=== PATIENT | male | born 1990 | race Caucasian/White ===

== ENCOUNTER 2017-11-04 08:17 | Day surgery (SDC) | payer OTHER ==
[2017-11-04] MEDS ORDERED: Morphine 2 MG/ML Syringe IVPUSH ONE ×2 (08:25→09:10)
[2017-11-04] MEDS ORDERED: Sodium Chloride 0.9% 10 ML Syringe FLUSH PRN ×2 (08:25→13:11)
[2017-11-04] MEDS ORDERED: Ondansetron 4 MG/2 ML SDV IVPUSH ONE (08:25)
[2017-11-04] MEDS ORDERED: Sodium Chloride 0.9% 2.5 ML Syringe FLUSH PRN ×2 (08:25→13:11)
[2017-11-04] MEDS ORDERED: Sodium Chloride 0.9% 1,000 ML IV ONE ×2 (08:25→10:58)
--- NOTE | 2017-11-04 08:41 | EDM.PDOC ---
ED HPI GENERAL MEDICAL PROBLEM - General Chief Complaint: Abdominal Pain Stated Complaint: ABD PAIN Time Seen by Provider: 11/04/17 08:18 Source of Information: Reports: Patient History Limitations: Reports: No Limitations - History of Present Illness INITIAL COMMENTS - FREE TEXT/NARRATIVE: History of present illness: []Patient started having right upper quadrant pain 2 hours ago. He states he has been nauseated with small amount of vomiting no diarrhea, fevers, sweats or chills. Review of systems: As per history of present illness and below otherwise all systems reviewed and negative. Past medical history: As per history of present illness and as reviewed below otherwise noncontributory. Surgical history: As per history of present illness and as reviewed below otherwise noncontributory. Social history: No reported history of drug or alcohol abuse. Family history: As per history of present illness and as reviewed below otherwise noncontributory. Physical exam: General: Well developed, well nourished in NAD HEENT: Atraumatic, normocephalic, pupils reactive, negative for conjunctival pallor or scleral icterus, mucous membranes moist, throat clear, neck supple, nontender, trachea midline. Lungs: Clear to auscultation, breath sounds equal bilaterally, chest nontender. Heart: S1S2, regular, negative for clicks, rubs, or JVD. Abdomen: Soft, nondistended, right upper quadrant tenderness without rebound or guarding, mild right lower quadrant tenderness. Negative for masses or hepatosplenomegaly. Negative for costovertebral tenderness. Pelvis: Stable nontender. Genitourinary: Deferred. Rectal: Deferred. Extremities: Atraumatic, negative for cords or calf pain. Neurovascular unremarkable. Neuro: Awake, alert, oriented. Cranial nerves II through XII unremarkable. Cerebellum unremarkable. Motor and sensory unremarkable throughout. Exam nonfocal. Skin:warm and dry Diagnostics: CBC, chemistry, lipase, UA ultrasound right upper quadrant, CT abdomen pelvis Therapeutics: IV fluids, morphine, Zofran ED Course: Patient's labs were normal however abdominal exam continued to show marked right upper quadrant tenderness therefore ultrasound was done negative and followed by CT which showed acute appendicitis Impression: Acute appendicitis Prescriptions: Plan: Dr. Espinoza consulted and is taking patient to surgery Definitive disposition and diagnosis as appropriate pending reevaluation and review of above. Right Abdominal Pain Score (Numeric/FACES): 10 - Related Data Allergies Allergy/AdvReac Type Severity Reaction Status Date / Time No Known Allergies Allergy Verified 11/04/17 08:21 Home Meds: Home Meds . [No Known Home Meds] 11/04/17 [History] Past Medical History - Infectious Disease History Infectious Disease History: Reports: Chicken Pox - Past Surgical History HEENT Surgical History: Reports: Adenoidectomy, Naso-Sinus Surgery Social & Family History - Family History Family Medical History: Noncontributory - Tobacco Use Smoking Status *Q: Former Smoker Used Tobacco, but Quit: Yes Month/Year Tobacco Last Used: 05/2017 - Recreational Drug Use Recreational Drug Use: No ED ROS GENERAL - Review of Systems Review Of Systems: ROS reveals no pertinent complaints other than HPI. ED EXAM, GI/ABD - Physical Exam Exam: See Below (See history of present illness) Course - Vital Signs Last Recorded V/S: Last Vital Signs Temp 96.5 F 11/04/17 08:18 Pulse 86 11/04/17 08:18 Resp 20 11/04/17 13:49 BP 138/82 11/04/17 08:18 Pulse Ox 99 11/04/17 13:49 - Orders/Labs/Meds Orders: Active Orders 24 hr Category Date Time Status Patient Status [ADT] Routine ADT 11/04/17 13:11 Active Bradycardia-Neuroaxis [employer] [RC] ROUTINE Care 11/04/17 13:25 Active Hypertension-Neuroaxis [employer] [RC] ROUTINE Care 11/04/17 13:25 Active Hypotension-Neuroaxis [employer] [RC] ROUTINE Care 11/04/17 13:25 Active Oxygen Therapy [RC] ASDIRECTED Care 11/04/17 13:26 Active Verify Patient Consent Obtain [RC] ASDIRECTED Care 11/04/17 13:11 Active Vital Signs [RC] PER UNIT ROUTINE Care 11/04/17 13:25 Active Nothing Per Oral Diet [DIET] Diet 11/04/17 Lunch Active Lactated Ringers [Ringers, Lactated] 1,000 ml Med 11/04/17 13:15 Active IV ASDIRECTED Sodium Chloride 0.9% [Saline Flush] Med 11/04/17 08:25 Active 10 ml FLUSH ASDIRECTED PRN Sodium Chloride 0.9% [Saline Flush] Med 11/04/17 13:11 Active 10 ml FLUSH ASDIRECTED PRN Sodium Chloride 0.9% [Saline Flush] Med 11/04/17 08:25 Active 2.5 ml FLUSH ASDIRECTED PRN Sodium Chloride 0.9% [Saline Flush] Med 11/04/17 13:11 Active 2.5 ml FLUSH ASDIRECTED PRN fentaNYL [Sublimaze] Med 11/04/17 13:25 Ordered 50 - 100 mcg IVPUSH Q5M PRN Peripheral IV Insertion Adult [OM.PC] Routine Oth 11/04/17 13:11 Ordered Saline Lock Insert [OM.PC] Stat Oth 11/04/17 08:25 Ordered Sequential Compression Device [OM.PC] Routine Oth 11/04/17 13:11 Ordered Resuscitation Status Routine Resus Stat 11/04/17 13:11 Ordered Medication Orders Fentanyl (Sublimaze) 50 - 100 mcg IVPUSH Q5M PRN PRN Reason: Pain Stop: 11/04/17 16:00 Lactated Ringer's (Ringers, Lactated) 1,000 mls @ 125 mls/hr IV ASDIRECTED NIRALI Sodium Chloride (Saline Flush) 10 ml FLUSH ASDIRECTED PRN PRN Reason: Keep Vein Open Sodium Chloride (Saline Flush) 2.5 ml FLUSH ASDIRECTED PRN PRN Reason: Keep Vein Open Sodium Chloride (Saline Flush) 10 ml FLUSH ASDIRECTED PRN PRN Reason: Keep Vein Open Sodium Chloride (Saline Flush) 2.5 ml FLUSH ASDIRECTED PRN PRN Reason: Keep Vein Open Labs: Laboratory Tests 11/04/17 11/04/17 11/04/17 Range/Units 08:32 08:32 10:47 WBC 9.29 (4.0-11.0) K/uL RBC 5.21 (4.50-5.90) M/uL Hgb 16.0 (13.0-17.0) g/dL Hct 45.2 (38.0-50.0) % MCV 86.8 (80.0-98.0) fL MCH 30.7 (27.0-32.0) pg MCHC 35.4 (31.0-37.0) g/dL RDW Std Deviation 40.5 (28.0-62.0) fl RDW Coeff of Horace 13 (11.0-15.0) % Plt Count 256 (150-400) K/uL MPV 9.80 (7.40-12.00) fL Neut % (Auto) 61.1 (48.0-80.0) % Lymph % (Auto) 29.5 (16.0-40.0) % [place] % (Auto) 6.9 (0.0-15.0) % Eos % (Auto) 1.9 (0.0-7.0) % Baso % (Auto) 0.6 (0.0-1.5) % Neut # (Auto) 5.7 (1.4-5.7) K/uL Lymph # (Auto) 2.7 H (0.6-2.4) K/uL [place] # (Auto) 0.6 (0.0-0.8) K/uL Eos # (Auto) 0.2 (0.0-0.7) K/uL Baso # (Auto) 0.1 (0.0-0.1) K/uL Nucleated RBC % 0.0 /100WBC Nucleated RBCs # 0 K/uL Sodium 140 (136-148) mmol/L Potassium 4.2 (3.5-5.1) mmol/L Chloride 105 (98-107) mmol/L Carbon Dioxide 27.2 (21.0-32.0) mmol/L BUN 15 (7.0-18.0) mg/dL Creatinine 1.0 (0.8-1.3) mg/dL Est Cr Clr Drug Dosing 101.90 mL/min Estimated GFR (MDRD) > 60.0 ml/min Glucose 127 H (74-106) mg/dL Calcium 9.5 (8.5-10.1) mg/dL Total Bilirubin 0.3 (0.2-1.0) mg/dL AST 18 (15-37) IU/L ALT 29 (14-63) IU/L Alkaline Phosphatase 122 H (46-116) U/L Total Protein 8.0 (6.4-8.2) g/dL Albumin 4.2 (3.4-5.0) g/dL Globulin 3.8 H (2.0-3.5) g/dL Albumin/Globulin Ratio 1.1 L (1.3-2.8) Lipase 79 (73-393) U/L Urine Color YELLOW Urine Appearance CLEAR Urine pH 5.5 (5.0-8.0) Ur Specific [place] >= 1.030 (1.001-1.035) Urine Protein NEGATIVE (NEGATIVE) mg/dL Urine Glucose (UA) NEGATIVE (NEGATIVE) mg/dL Urine Ketones NEGATIVE (NEGATIVE) mg/dL Urine Occult Blood NEGATIVE (NEGATIVE) Urine Nitrite NEGATIVE (NEGATIVE) Urine Bilirubin NEGATIVE (NEGATIVE) Urine Urobilinogen 0.2 (<2.0) EU/dL Ur Leukocyte Esterase NEGATIVE (NEGATIVE) Urine RBC 0-1 (0-2/HPF) Urine WBC NONE SEEN (0-5/HPF) Ur Epithelial Cells RARE (NONE-FEW) Amorphous Sediment RARE (NEGATIVE) Urine Bacteria RARE (NEGATIVE) Meds: Medications Generic Name Dose Route Start Last Admin Trade Name Frenita PRN Reason Stop Dose Admin Fentanyl 50 - 100 mcg 11/04/17 13:25 Sublimaze IVPUSH 11/04/17 16:00 Q5M PRN Pain Lactated Ringer's 1,000 mls @ 125 mls/hr 11/04/17 13:15 Ringers, Lactated IV ASDIRECTED NIRALI Sodium Chloride 10 ml 11/04/17 08:25 Saline Flush FLUSH ASDIRECTED PRN Keep Vein Open Sodium Chloride 2.5 ml 11/04/17 08:25 Saline Flush FLUSH ASDIRECTED PRN Keep Vein Open Sodium Chloride 10 ml 11/04/17 13:11 Saline Flush FLUSH ASDIRECTED PRN Keep Vein Open Sodium Chloride 2.5 ml 11/04/17 13:11 Saline Flush FLUSH ASDIRECTED PRN Keep Vein Open Discontinued Medications Generic Name Dose Route Start Last Admin Trade Name Frenita PRN Reason Stop Dose Admin Bupivacaine HCl Confirm 11/04/17 13:07 Marcaine 0.5% Administered 11/04/17 13:08 Dose 30 ml .ROUTE .STK-MED ONE Dexamethasone Confirm 11/04/17 14:16 Dexamethasone Administered 11/04/17 14:17 Dose 20 mg .ROUTE .STK-MED ONE Fentanyl Confirm 11/04/17 13:16 Sublimaze Administered 11/04/17 13:17 Dose 100 mcg .ROUTE .STK-MED ONE Hydromorphone HCl Confirm 11/04/17 14:19 Dilaudid Administered 11/04/17 14:20 Dose 2 mg .ROUTE .STK-MED ONE Sodium Chloride 1,000 mls @ 999 mls/hr 11/04/17 08:25 11/04/17 08:35 Normal Saline IV 11/04/17 09:25 999 mls/hr .Bolus ONE Administration Sodium Chloride 1,000 mls @ 999 mls/hr 11/04/17 10:58 11/04/17 11:55 Normal Saline IV 11/04/17 11:58 999 mls/hr .Bolus ONE Administration Piperacillin Sod/Tazobactam 50 mls @ 100 mls/hr 11/04/17 13:06 11/04/17 13:48 Sod 3.375 gm/ Sodium Chloride IV 11/04/17 13:35 100 mls/hr ONETIME ONE Administration Iopamidol 100 ml 11/04/17 11:15 11/04/17 11:17 Isovue Multipack-370 (76%) IVPUSH 11/04/17 11:16 100 ml ONETIME STA Administration Lidocaine Confirm 11/04/17 13:16 Xylocaine-Mpf 2% Administered 11/04/17 13:17 Dose 5 ml .ROUTE .STK-MED ONE Midazolam HCl Confirm 11/04/17 13:16 Versed 1 Mg/Ml Administered 11/04/17 13:17 Dose 2 mg .ROUTE .STK-MED ONE Morphine Sulfate 2 mg 11/04/17 08:25 11/04/17 08:41 Morphine IVPUSH 11/04/17 08:26 2 mg ONETIME ONE Administration Morphine Sulfate 4 mg 11/04/17 09:10 11/04/17 10:07 Morphine IVPUSH 11/04/17 09:11 2 mg ONETIME ONE Administration Ondansetron HCl 4 mg 11/04/17 08:25 11/04/17 08:38 Zofran IVPUSH 11/04/17 08:26 4 mg ONETIME ONE Administration Ondansetron HCl Confirm 11/04/17 14:16 Zofran Administered 11/04/17 14:17 Dose 4 mg .ROUTE .STK-MED ONE Propofol Confirm 11/04/17 13:16 Diprivan 20 Ml Administered 11/04/17 13:17 Dose 200 mg .ROUTE .STK-MED ONE Rocuronium [place] Confirm 11/04/17 13:16 Zemuron Administered 11/04/17 13:17 Dose 100 mg .ROUTE .STK-MED ONE Departure - Departure Time of Disposition: 14:00 Disposition: Admitted As Inpatient 68 Condition: Good Clinical Impression: Acute appendicitis Qualifiers: Acute appendicitis type: unspecified acute appendicitis type Qualified Code(s) : K35.80 - Unspecified acute appendicitis - Discharge Information *PRESCRIPTION DRUG MONITORING PROGRAM REVIEWED*: No *COPY OF PRESCRIPTION DRUG MONITORING REPORT IN PATIENT ROGER: No - My Orders Last 24 Hours: My Active Orders 11/04/17 08:25 Sodium Chloride 0.9% [Saline Flush] 10 ml FLUSH ASDIRECTED PRN Sodium Chloride 0.9% [Saline Flush] 2.5 ml FLUSH ASDIRECTED PRN Saline Lock Insert [OM.PC] Stat - Assessment/Plan Last 24 Hours: My Active Orders 11/04/17 08:25 Sodium Chloride 0.9% [Saline Flush] 10 ml FLUSH ASDIRECTED PRN Sodium Chloride 0.9% [Saline Flush] 2.5 ml FLUSH ASDIRECTED PRN Saline Lock Insert [OM.PC] Stat
[2017-11-04 09:11] LABS: CHLORIDE,CL 105 mmol/L (98-107); SODIUM,NA 140 mmol/L (136-148)
--- NOTE | 2017-11-04 10:28 | US ---
EXAMINATION: Right upper quadrant ultrasound HISTORY: Pain COMPARISON: None TECHNIQUE: Grayscale and color Doppler imaging obtained. FINDINGS: The visualized pancreas appears normal. The liver is normal in contour and echogenicity wit hout a focal hepatic mass. The gallbladder wall thickness is normal. No pericholecystic fluid or shad owing gallstones. The common bile duct measures 6 mm. The right kidney measures 11.3 cm [id number] without evidence of hydronephrosis. IMPRESSION: No acute findings right upper quadrant.
[2017-11-04] MEDS ORDERED: Iopamidol 755 MG/ML 500 ML Multipack Bottle IVPUSH STA (11:15)
--- NOTE | 2017-11-04 11:40 | CT ---
CT of the abdomen and pelvis with contrast. HISTORY: Pain TECHNIQUE: Axial CT images were obtained of the abdomen and pelvis following administration of 100 mL of Isovue-370 in the left antecubital fossa without complication. Coronal and sagittal reconstructio ns obtained. FINDINGS: The lung bases are clear, no pleural effusion. There are a few tiny nodules within the lower lobe jose miguel suring up to 3 mm. Likely benign given the patient's age. The liver, spleen, and adrenal glands appear normal. Pancreas appear normal. The gallbladder wall niya ears mildly thickened without significant pericholecystic fluid or definite gallstones. There is no b ulky retroperitoneal lymphadenopathy or abdominal ascites. Common bile duct is borderline at 6 mm. The kidneys enhance and function symmetrically without evidence of obstructive uropathy. Small renal cortical cysts are noted. The large and small bowel are normal in caliber without evidence of obstruction. No focal pericolonic inflammation or stranding. The appendix is mildly enlarged and enhancing with a trace periappendicea l stranding. The urinary bladder is normal. No bulky pelvic lymphadenopathy or free pelvic fluid. No suspicious osseous abnormalities identified. IMPRESSION: 1. The appendix is mildly enlarged and enhancing with a trace periappendiceal stranding, likely early appendicitis. 2. The gallbladder wall thickness is also borderline at 3 mm with a borderline common bile duct at 6 mm.
[2017-11-04] MEDS ORDERED: Piperacillin/Tazobactam 3.375 GM in Sodium Chloride 0.9% 50 ML IV ONE (13:06)
[2017-11-04] MEDS ORDERED: Bupivacaine 0.5% 30 ML SDV ONE (13:07)
[2017-11-04] MEDS ORDERED: Rocuronium 10 MG/ML 10 ML Syringe ONE (13:16)
[2017-11-04] MEDS ORDERED: Midazolam 1 MG/ML 2 ML SDV ONE (13:16)
[2017-11-04] MEDS ORDERED: Lidocaine 2% 5 ML SDV ONE (13:16)
[2017-11-04] MEDS ORDERED: fentaNYL 100 MCG/2 ML SDV ONE (13:16)
[2017-11-04] MEDS ORDERED: Propofol 200 MG/20 ML SDV ONE (13:16)
--- NOTE | 2017-11-04 13:17 | PCM.HP ---
H&P History of Present Illness - General Date of Service: 11/04/17 Admit Problem/Dx: Admission Diagnosis/Problem Admission Diagnosis/Problem Appendicitis Source of Information: Patient History Limitations: Reports: No Limitations - History of Present Illness Initial Comments - Free Text/Narative: Patient is a 27 year old male who was woken up this morning with sharp right sided abdominal pain. The pain continued to get worse as the morning went on. Any movement made the pain worse. He was nauseated, but did not vomit. He denies fevers, but had chills. He denies any change in his bowel habits. He presented to the ED. His WBC was normal. His alk phos was slightly elevated. An US was performed of the gallbladder. This appeared normal. He had no evidence of stones. A CT of the abdomen pelvis was performed. This showed borderline gallbladder wall thickening at 3mm, however his appendix was enlarged with enhancement and trace wiliam-appendicile fluid due most likely to early appendicitis. Per the ER physician he was very tender on exam, however after pain medications he had no tenderness on my exam. Right Abdominal Pain Score (Numeric/FACES): 10 - Related Data Allergies/Adverse Reactions: Allergies Allergy/AdvReac Type Severity Reaction Status Date / Time No Known Allergies Allergy Verified 11/04/17 08:21 Home Medications: Home Meds . [No Known Home Meds] 11/04/17 [History] Past Medical History - Past Health History Medical/Surgical History: Denies Medical/Surgical History - Infectious Disease History Infectious Disease History: Reports: Chicken Pox - Past Surgical History HEENT Surgical History: Reports: Adenoidectomy, Naso-Sinus Surgery Social & Family History - Family History Family Medical History: Noncontributory - Tobacco Use Smoking Status *Q: Former Smoker Tobacco Use Within Last Twelve Months: Smokeless Tobacco Used Tobacco, but Quit: Yes Month/Year Tobacco Last Used: 05/2017 - Recreational Drug Use Recreational Drug Use: No H&P Review of Systems - Review of Systems: Review Of Systems: ROS reveals no pertinent complaints other than HPI. Exam - Exam Exam: See Below - Vital Signs Vital Signs: Last Vital Signs Temp 35.8 C 11/04/17 08:18 Pulse 86 11/04/17 08:18 Resp 20 11/04/17 08:18 BP 138/82 11/04/17 08:18 Pulse Ox 99 11/04/17 08:18 Weight: 108.862 kg - Exam General: Alert, Oriented, Cooperative HEENT: Conjunctiva Clear, Mucosa Moist & [place], Posterior Pharynx Clear Neck: Trachea Midline Lungs: Clear to Auscultation, Normal Respiratory Effort Cardiovascular: Regular Rate, Regular Rhythm GI/Abdominal Exam: Soft, Non-Tender, No Distention, No Mass Back Exam: Normal Inspection Extremities: Normal Inspection, Normal Range of Motion - Patient Data Lab Results Last 24 hrs: Laboratory Results - last 24 hr 11/04/17 11/04/17 11/04/17 Range/Units 08:32 08:32 10:47 WBC 9.29 (4.0-11.0) K/uL RBC 5.21 (4.50-5.90) M/uL Hgb 16.0 (13.0-17.0) g/dL Hct 45.2 (38.0-50.0) % MCV 86.8 (80.0-98.0) fL MCH 30.7 (27.0-32.0) pg MCHC 35.4 (31.0-37.0) g/dL RDW Std Deviation 40.5 (28.0-62.0) fl RDW Coeff of Horace 13 (11.0-15.0) % Plt Count 256 (150-400) K/uL MPV 9.80 (7.40-12.00) fL Neut % (Auto) 61.1 (48.0-80.0) % Lymph % (Auto) 29.5 (16.0-40.0) % [place] % (Auto) 6.9 (0.0-15.0) % Eos % (Auto) 1.9 (0.0-7.0) % Baso % (Auto) 0.6 (0.0-1.5) % Neut # (Auto) 5.7 (1.4-5.7) K/uL Lymph # (Auto) 2.7 H (0.6-2.4) K/uL [place] # (Auto) 0.6 (0.0-0.8) K/uL Eos # (Auto) 0.2 (0.0-0.7) K/uL Baso # (Auto) 0.1 (0.0-0.1) K/uL Nucleated RBC % 0.0 /100WBC Nucleated RBCs # 0 K/uL Sodium 140 (136-148) mmol/L Potassium 4.2 (3.5-5.1) mmol/L Chloride 105 (98-107) mmol/L Carbon Dioxide 27.2 (21.0-32.0) mmol/L BUN 15 (7.0-18.0) mg/dL Creatinine 1.0 (0.8-1.3) mg/dL Est Cr Clr Drug Dosing 101.90 mL/min Estimated GFR (MDRD) > 60.0 ml/min Glucose 127 H (74-106) mg/dL Calcium 9.5 (8.5-10.1) mg/dL Total Bilirubin 0.3 (0.2-1.0) mg/dL AST 18 (15-37) IU/L ALT 29 (14-63) IU/L Alkaline Phosphatase 122 H (46-116) U/L Total Protein 8.0 (6.4-8.2) g/dL Albumin 4.2 (3.4-5.0) g/dL Globulin 3.8 H (2.0-3.5) g/dL Albumin/Globulin Ratio 1.1 L (1.3-2.8) Lipase 79 (73-393) U/L Urine Color YELLOW Urine Appearance CLEAR Urine pH 5.5 (5.0-8.0) Ur Specific [place] >= 1.030 (1.001-1.035) Urine Protein NEGATIVE (NEGATIVE) mg/dL Urine Glucose (UA) NEGATIVE (NEGATIVE) mg/dL Urine Ketones NEGATIVE (NEGATIVE) mg/dL Urine Occult Blood NEGATIVE (NEGATIVE) Urine Nitrite NEGATIVE (NEGATIVE) Urine Bilirubin NEGATIVE (NEGATIVE) Urine Urobilinogen 0.2 (<2.0) EU/dL Ur Leukocyte Esterase NEGATIVE (NEGATIVE) Urine RBC 0-1 (0-2/HPF) Urine WBC NONE SEEN (0-5/HPF) Ur Epithelial Cells RARE (NONE-FEW) Amorphous Sediment RARE (NEGATIVE) Urine Bacteria RARE (NEGATIVE) Result Diagrams: 11/04/17 08:32 11/04/17 08:32 - Problem List (1) Appendicitis SNOMED Code(s): 17793907 ICD Code: K37 - UNSPECIFIED APPENDICITIS Status: Acute Current Visit: Yes Problem List Initiated/Reviewed/Updated: Yes Orders Last 24hrs: Active Orders 24 hr Category Date Time Status Patient Status [ADT] Routine ADT 11/04/17 13:11 Ordered Verify Patient Consent Obtain [RC] ASDIRECTED Care 11/04/17 13:11 Ordered Nothing Per Oral Diet [DIET] Diet 11/04/17 Lunch Ordered Lactated Ringers @ 125 MLS/HR(1000ml) Med 11/04/17 13:15 Ordered Lactated Ringers [Ringers, Lactated] 1,000 ml IV ASDIRECTED Piperacillin/Tazobactam [Piperacil-Tazobact] 3.375 gm Med 11/04/17 13:06 Ordered Sodium Chloride 0.9% [Normal Saline] 50 ml IV ONETIME Sodium Chloride 0.9% [Saline Flush] Med 11/04/17 08:25 Active 10 ml FLUSH ASDIRECTED PRN Sodium Chloride 0.9% [Saline Flush] Med 11/04/17 13:11 Ordered 10 ml FLUSH ASDIRECTED PRN Sodium Chloride 0.9% [Saline Flush] Med 11/04/17 08:25 Active 2.5 ml FLUSH ASDIRECTED PRN Sodium Chloride 0.9% [Saline Flush] Med 11/04/17 13:11 Ordered 2.5 ml FLUSH ASDIRECTED PRN Peripheral IV Insertion Adult [OM.PC] Routine Oth 11/04/17 13:11 Ordered Saline Lock Insert [OM.PC] Stat Oth 11/04/17 08:25 Ordered Sequential Compression Device [OM.PC] Routine Oth 11/04/17 13:11 Ordered Resuscitation Status Routine Resus Stat 11/04/17 13:11 Ordered Medication Orders Piperacillin Sod/Tazobactam (Sod 3.375 gm/ Sodium Chloride) 50 mls @ 100 mls/ hr IV ONETIME ONE Stop: 11/04/17 13:35 Sodium Chloride (Saline Flush) 10 ml FLUSH ASDIRECTED PRN PRN Reason: Keep Vein Open Sodium Chloride (Saline Flush) 2.5 ml FLUSH ASDIRECTED PRN PRN Reason: Keep Vein Open Assessment/Plan Comment:: The patient and I discussed the pathophysiology of appendicitis. I explained that the treatment for this is removal of the appendix. I discussed the laparoscopic and open appendectomy. I will attempt this laparoscopically but should I be unable to perform this safely, we will convert to open. We discussed the expected wiliam-operative course and the risks including bleeding, infection or damage to surrounding structures. He verbalized understanding and wishes to proceed. He should remain NPO, continue receiving IVF, and I ordered zofran to be started before surgery.
[2017-11-04] MEDS ORDERED: fentaNYL 100 MCG/2 ML SDV IVPUSH PRN (13:25)
--- NOTE | 2017-11-04 13:49 | PCM.PREANE ---
Preanesthetic Assessment - Anesthesia/Transfusion/Family Hx Anesthesia History: Prior Anesthesia Without Reaction Family History of Anesthesia Reaction: No Intubation History: Unknown - Review of Systems General: No Symptoms Pulmonary: No Symptoms Cardiovascular: No Symptoms Gastrointestinal: Abdominal Pain Neurological: No Symptoms Other: Reports: None - Physical Assessment O2 Sat by Pulse Oximetry: 99 Respiratory Rate: 20 Vital Signs: Last Vital Signs Temp 35.8 C 11/04/17 08:18 Pulse 86 11/04/17 08:18 Resp 20 11/04/17 08:18 BP 138/82 11/04/17 08:18 Pulse Ox 99 11/04/17 08:18 Height: 1.68 m Weight: 108.862 kg ASA Class: 2E Mental Status: Alert & Oriented x3 Airway Class: Mallampati = 3 Dentition: Reports: Normal Dentition (small chip front upper incisor) Thyro-Mental Finger Breadths: 2 Mouth Opening Finger Breadths: 3 ROM/Head Extension: Full Lungs: Clear to Auscultation, Normal Respiratory Effort Cardiovascular: Regular Rate, Regular Rhythm - Lab Values: Laboratory Last Values WBC 9.29 K/uL (4.0-11.0) 11/04/17 08:32 RBC 5.21 M/uL (4.50-5.90) 11/04/17 08:32 Hgb 16.0 g/dL (13.0-17.0) 11/04/17 08:32 Hct 45.2 % (38.0-50.0) 11/04/17 08:32 MCV 86.8 fL (80.0-98.0) 11/04/17 08:32 MCH 30.7 pg (27.0-32.0) 11/04/17 08:32 MCHC 35.4 g/dL (31.0-37.0) 11/04/17 08:32 RDW Std Deviation 40.5 fl (28.0-62.0) 11/04/17 08:32 RDW Coeff of Horace 13 % (11.0-15.0) 11/04/17 08:32 Plt Count 256 K/uL (150-400) 11/04/17 08:32 MPV 9.80 fL (7.40-12.00) 11/04/17 08:32 Neut % (Auto) 61.1 % (48.0-80.0) 11/04/17 08:32 Lymph % (Auto) 29.5 % (16.0-40.0) 11/04/17 08:32 Emery % (Auto) 6.9 % (0.0-15.0) 11/04/17 08:32 Eos % (Auto) 1.9 % (0.0-7.0) 11/04/17 08:32 Baso % (Auto) 0.6 % (0.0-1.5) 11/04/17 08:32 Neut # (Auto) 5.7 K/uL (1.4-5.7) 11/04/17 08:32 Lymph # (Auto) 2.7 K/uL (0.6-2.4) H 11/04/17 08:32 Emery # (Auto) 0.6 K/uL (0.0-0.8) 11/04/17 08:32 Eos # (Auto) 0.2 K/uL (0.0-0.7) 11/04/17 08:32 Baso # (Auto) 0.1 K/uL (0.0-0.1) 11/04/17 08:32 Nucleated RBC % 0.0 /100WBC 11/04/17 08:32 Nucleated RBCs # 0 K/uL 11/04/17 08:32 Sodium 140 mmol/L (136-148) 11/04/17 08:32 Potassium 4.2 mmol/L (3.5-5.1) 11/04/17 08:32 Chloride 105 mmol/L (98-107) 11/04/17 08:32 Carbon Dioxide 27.2 mmol/L (21.0-32.0) 11/04/17 08:32 BUN 15 mg/dL (7.0-18.0) 11/04/17 08:32 Creatinine 1.0 mg/dL (0.8-1.3) 11/04/17 08:32 Est Cr Clr Drug Dosing 101.90 mL/min 11/04/17 08:32 Estimated GFR (MDRD) > 60.0 ml/min 11/04/17 08:32 Glucose 127 mg/dL (74-106) H 11/04/17 08:32 Calcium 9.5 mg/dL (8.5-10.1) 11/04/17 08:32 Total Bilirubin 0.3 mg/dL (0.2-1.0) 11/04/17 08:32 AST 18 IU/L (15-37) 11/04/17 08:32 ALT 29 IU/L (14-63) 11/04/17 08:32 Alkaline Phosphatase 122 U/L (46-116) H 11/04/17 08:32 Total Protein 8.0 g/dL (6.4-8.2) 11/04/17 08:32 Albumin 4.2 g/dL (3.4-5.0) 11/04/17 08:32 Globulin 3.8 g/dL (2.0-3.5) H 11/04/17 08:32 Albumin/Globulin Ratio 1.1 (1.3-2.8) L 11/04/17 08:32 Lipase 79 U/L (73-393) 11/04/17 08:32 Urine Color YELLOW 11/04/17 10:47 Urine Appearance CLEAR 11/04/17 10:47 Urine pH 5.5 (5.0-8.0) 11/04/17 10:47 Ur Specific [place] >= 1.030 (1.001-1.035) 11/04/17 10:47 Urine Protein NEGATIVE mg/dL (NEGATIVE) 11/04/17 10:47 Urine Glucose (UA) NEGATIVE mg/dL (NEGATIVE) 11/04/17 10:47 Urine Ketones NEGATIVE mg/dL (NEGATIVE) 11/04/17 10:47 Urine Occult Blood NEGATIVE (NEGATIVE) 11/04/17 10:47 Urine Nitrite NEGATIVE (NEGATIVE) 11/04/17 10:47 Urine Bilirubin NEGATIVE (NEGATIVE) 11/04/17 10:47 Urine Urobilinogen 0.2 EU/dL (<2.0) 11/04/17 10:47 Ur Leukocyte Esterase NEGATIVE (NEGATIVE) 11/04/17 10:47 Urine RBC 0-1 (0-2/HPF) 11/04/17 10:47 Urine WBC NONE SEEN (0-5/HPF) 11/04/17 10:47 Ur Epithelial Cells RARE (NONE-FEW) 11/04/17 10:47 Amorphous Sediment RARE (NEGATIVE) 11/04/17 10:47 Urine Bacteria RARE (NEGATIVE) 11/04/17 10:47 - Allergies Allergies/Adverse Reactions: Allergies Allergy/AdvReac Type Severity Reaction Status Date / Time No Known Allergies Allergy Verified 11/04/17 08:21 - Blood Blood Available: No - Anesthesia Plan Pre-Op Medication Ordered: None - Acknowledgements Anesthesia Type Planned: General Anesthesia Pt an Appropriate Candidate for the Planned Anesthesia: Yes Alternatives and Risks of Anesthesia Discussed w Pt/Guardian: Yes Pt/Guardian Understands and Agrees with Anesthesia Plan: Yes PreAnesthesia Questionnaire - Past Health History Medical/Surgical History: Denies Medical/Surgical History Respiratory History: Reports: Sleep Apnea (does not have CPAP mask yet) Endocrine/Metabolic History: Reports: Obesity/BMI 30+ - Infectious Disease History Infectious Disease History: Reports: Chicken Pox - Past Surgical History HEENT Surgical History: Reports: Adenoidectomy, Naso-Sinus Surgery, Oral Surgery - SUBSTANCE USE Smoking Status *Q: Former Smoker Tobacco Use Within Last Twelve Months: Smokeless Tobacco Recreational Drug Use History: No - HOME MEDS Home Medications: Home Meds . [No Known Home Meds] 11/04/17 [History] - CURRENT (IN HOUSE) MEDS Current Meds: Current Medications Fentanyl (Sublimaze) 50 - 100 mcg IVPUSH Q5M PRN PRN Reason: Pain Stop: 11/04/17 16:00 Lactated Ringer's (Ringers, Lactated) 1,000 mls @ 125 mls/hr IV ASDIRECTED NIRALI Sodium Chloride (Saline Flush) 10 ml FLUSH ASDIRECTED PRN PRN Reason: Keep Vein Open Sodium Chloride (Saline Flush) 2.5 ml FLUSH ASDIRECTED PRN PRN Reason: Keep Vein Open Sodium Chloride (Saline Flush) 10 ml FLUSH ASDIRECTED PRN PRN Reason: Keep Vein Open Sodium Chloride (Saline Flush) 2.5 ml FLUSH ASDIRECTED PRN PRN Reason: Keep Vein Open Discontinued Medications Bupivacaine HCl (Marcaine 0.5%) Confirm Administered Dose 30 ml .ROUTE .STK-MED ONE Stop: 11/04/17 13:08 Fentanyl (Sublimaze) Confirm Administered Dose 100 mcg .ROUTE .STK-MED ONE Stop: 11/04/17 13:17 Sodium Chloride (Normal Saline) 1,000 mls @ 999 mls/hr IV .Bolus ONE Stop: 11/04/17 09:25 Last Admin: 11/04/17 08:35 Dose: 999 mls/hr Sodium Chloride (Normal Saline) 1,000 mls @ 999 mls/hr IV .Bolus ONE Stop: 11/04/17 11:58 Last Admin: 11/04/17 11:55 Dose: 999 mls/hr Piperacillin Sod/Tazobactam (Sod 3.375 gm/ Sodium Chloride) 50 mls @ 100 mls/ hr IV ONETIME ONE Stop: 11/04/17 13:35 Iopamidol (Isovue Multipack-370 (76%)) 100 ml IVPUSH ONETIME STA Stop: 11/04/17 11:16 Last Admin: 11/04/17 11:17 Dose: 100 ml Lidocaine (Xylocaine-Mpf 2%) Confirm Administered Dose 5 ml .ROUTE .STK-MED ONE Stop: 11/04/17 13:17 Midazolam HCl (Versed 1 Mg/Ml) Confirm Administered Dose 2 mg .ROUTE .STK-MED ONE Stop: 11/04/17 13:17 Morphine Sulfate (Morphine) 2 mg IVPUSH ONETIME ONE Stop: 11/04/17 08:26 Last Admin: 11/04/17 08:41 Dose: 2 mg Morphine Sulfate (Morphine) 4 mg IVPUSH ONETIME ONE Stop: 11/04/17 09:11 Last Admin: 11/04/17 10:07 Dose: 2 mg Ondansetron HCl (Zofran) 4 mg IVPUSH ONETIME ONE Stop: 11/04/17 08:26 Last Admin: 11/04/17 08:38 Dose: 4 mg Propofol (Diprivan 20 Ml) Confirm Administered Dose 200 mg .ROUTE .STK-MED ONE Stop: 11/04/17 13:17 Rocuronium Council (Zemuron) Confirm Administered Dose 100 mg .ROUTE .STK-MED ONE Stop: 11/04/17 13:17
[2017-11-04] MEDS ORDERED: Dexamethasone 4 MG/ML 5 ML MDV ONE (14:16)
[2017-11-04] MEDS ORDERED: Ondansetron 4 MG/2 ML SDV ONE (14:16)
[2017-11-04] MEDS ORDERED: HYDROmorphone 2 MG/ML SDV ONE (14:19)
[2017-11-04] MEDS ORDERED: Atropine 1 MG/ML SDV ONE ×4 (15:07→16:13)
[2017-11-04] MEDS ORDERED: Neostigmine Methylsulfate 1 MG/ML 5 ML Syringe ONE ×2 (15:07→16:04)
[2017-11-04] MEDS ORDERED: Sodium Chloride 0.9% 20 ML ONE (15:14)
[2017-11-04] MEDS ORDERED: Acetaminophen 1,000 MG in Premix Bag 1 BAG IV PRN (15:42)
[2017-11-04] MEDS ORDERED: Promethazine 25 MG/ML SDV IM PRN (16:19)
[2017-11-04] MEDS ORDERED: Ondansetron 4 MG/2 ML SDV IVPUSH PRN (16:19)
[2017-11-04] MEDS ORDERED: HYDROmorphone 1 MG/ML Syringe IVPUSH PRN (16:19)
--- NOTE | 2017-11-04 16:26 | PCM.OPNOTE ---
- General Post-Op/Procedure Note Date of Surgery/Procedure: 11/04/17 Operative Procedure(s): Laparoscopic appendectomy Findings: Acutely inflammed and enlarged appendix. Not perforated. distended gallbladder that did not appear inflamed. Pre Op Diagnosis: Acute appendicitis Post-Op Diagnosis: same Anesthesia Technique: General ET Tube Primary Surgeon: Yovana Cornell Fluid Replacement, Intraop: 1,000 Output, Urine Amount: 600 EBL in mLs: 10 Condition: Good
--- NOTE | 2017-11-04 17:07 | PCM.POSTAN ---
POST ANESTHESIA ASSESSMENT - MENTAL STATUS Mental Status: Alert, Oriented - RESPIRATORY Respiratory Status: Respiratory Rate WNL, Airway Patent, O2 Saturation Stable, Supplemental Oxygen (Pt requires O2/NC to maintain sats > 92% secondary to sleep apnea.) - CARDIOVASCULAR CV Status: Pulse Rate WNL, Blood Pressure Stable - GASTROINTESTINAL GI Status: No Symptoms - POST OP HYDRATION Hydration Status: Adequate & Stable
[2017-11-04] MEDS: Piperacillin/Tazobactam 3.375 GM in Sodium Chloride 0.9% 50 ML IV SCH (20:33)
--- NOTE | 2017-11-04 23:14 | OR ---
SURGEON: CECY MARTIN MD DATE OF PROCEDURE: 11/04/2017 PREOPERATIVE DIAGNOSIS: Acute appendicitis. POSTOPERATIVE DIAGNOSIS: Acute appendicitis. Intra-abdominal adhesions. PROCEDURE PERFORMED: Laparoscopic appendectomy. Lysis of adhesions ANESTHESIA: General endotracheal anesthesia. FLUIDS: 1000 mL crystalloid. URINE OUTPUT: 600 mL. ESTIMATED BLOOD LOSS: 10 mL. FINDINGS: Acutely inflamed and enlarged appendix, not perforated. The gallbladder appeared distended, but not acutely inflamed. Adhesions of the distal ileum and sigmoid colon to the pelvis. COMPLICATIONS: None. INDICATIONS: The patient is a 27-year-old male, who woke up this morning with severe right- sided abdominal pain. He presented to the emergency room. His white blood cell count was normal. Ultrasound of the right upper quadrant revealed normal- appearing gallbladder. A CT of the abdomen and pelvis was performed that showed a mildly inflamed and enlarged appendix with trace pericholecystic fluid consistent with early appendicitis. The patient and I discussed the CT findings. There was a suggestion of mild gallbladder wall thickening. The patient and I discussed the pathophysiology of appendicitis. I explained that the treatment for this is removal of the appendix. I explained the laparoscopic and open approaches. Should I be unable to perform this safely laparoscopically, I will convert to open. I explained to the patient that I will take a look at the gallbladder while I am in there. If the gallbladder appears acutely inflamed, I will remove that at the same time. I explained the laparoscopic and open approaches to the gallbladder. Should I be unable to perform this procedure safely, I may have to convert to open. The patient and I discussed the expected perioperative course, as well as the risks to each procedure including bleeding, infection, or damage to surrounding structures. The patient verbalized understanding and wishes to proceed. PROCEDURE IN DETAIL: The patient was brought to the endoscopy suite and placed on the OR table in supine position. A time-out was completed verifying the patient's name, age, date of , allergies, and procedure to be performed. General endotracheal anesthesia was induced. The left arm was tucked at the patient's side and a Soria catheter placed. The abdomen was prepped and draped in usual standard fashion. I anesthetized an area 2 fingerbreadths below the left subcostal margin within the midclavicular line with 0.5% Marcaine plain. A #11 blade was used to make an incision over this area. A 5 mm optical trocar was then used to gain entry into the abdomen in the left upper quadrant. All layers of the abdominal wall were visualized upon entry. The abdomen was insufflated and I placed a 5 mm 30-degree scope into the abdomen. I inspected the area underneath my trocar incision. There was minimal trauma to the omentum, but no other intraabdominal structures were damaged. A 5 mm trocar was placed under direct visualization just left and lateral to the umbilicus. The patient was placed into Trendelenburg position and airplaned slightly to the left. I turned my attention to the right lower quadrant. The patient's appendix appeared to be retrocecal. Given the patient's size, I then decided to place a 12 mm trocar within the lower midline. This was placed under direct visualization. This placement allowed me to be able to reach the cecum without difficulty. I turned my attention back to the right lower quadrant. I attempted to sweep the small bowel away from the right lower quadrant, however, the patient's distal ileum was adhered to the pelvic sidewall. Because of this, I was unable to expose the cecum. Using a laparoscopic scissors, I took down some of these adhesions and was able then to sweep the bowel cranially. This allowed for better visualization of the appendix. The appendix itself was densely adhered to the posterior peritoneum. I was having difficulty exposing this area adequately. I asked my partner, Dr. Leonel Carranza to come into the case for advice. I switched my camera to the 12 mm trocar site and with Dr. Leonel Carranza's guidance, I was able to take down some of the small bowel adhesions safely, which allowed me to better expose the appendix itself. A Harmonic device was used to take down the appendiceal mesentery from distal to proximal. By doing this, I was able to free up the appendix adequately and bring it anteriorly. Once the appendiceal mesentery was completely taken down, I was able to clearly see the base of the appendix as it inserted on the cecum. The appendiceal base appeared uninvolved. An endoscopic stapling device was placed through the 12 mm port and I stapled and transected across the base of the appendix with a 45 mm blue load of keiko. The appendix was placed in an EndoCatch bag and removed through the 12 mm port site. It was sent to pathology, labeled as appendix. The 12 mm port was replaced back in the abdomen. I then turned my attention to the gallbladder. It appeared distended, but upon palpation was soft with no evidence of inflammation. In consultation with Dr. Leonel Carranza, we both agreed that at this point in time, the best option was not to take the gallbladder out. I then removed the 12 mm trocar from the lower midline and closed the site with an interrupted 0 Vicryl suture placed using a [employer] device. The area was hemostatic upon tying down the suture. I then closely inspected the abdomen. The ileum appeared to be intact, and there was no damage to any other surrounding structures. The staple line appeared healthy. My operative field was hemostatic. I removed the 5 mm trocars under direct visualization and allowed the abdomen to desufflate. I closed the 12 mm port site with interrupted 3-0 Vicryl and subcutaneous fat and a running 4-0 Monocryl stitch. The 5 mm trocar sites were closed with interrupted 4-0 Monocryl sutures. Steri-Strips and sterile dressings were applied. The patient tolerated the procedure well with no immediate complications. JAMAL NOVOA /[id number] JENIFFER
[2017-11-04] MEDS: Lactated Ringers 1,000 ML IV SCH (23:45)
[2017-11-05] MEDS: Acetaminophen/oxyCODONE 325-5 MG Tab PO PRN ×3 (00:01→10:57)
[2017-11-05] MEDS: Piperacillin/Tazobactam 3.375 GM in Sodium Chloride 0.9% 50 ML IV SCH (03:51)
--- NOTE | 2017-11-05 06:49 | PCM48HPAN ---
Post Anesthesia Note - EVALUATION WITHIN 48HRS OF ANESTHETIC Vital Signs in Normal Range: Yes Patient Participated in Evaluation: Yes Respiratory Function Stable: Yes Airway Patent: Yes Cardiovascular Function Stable: Yes Hydration Status Stable: Yes Pain Control Satisfactory: Yes Nausea and Vomiting Control Satisfactory: Yes Mental Status Recovered: Yes Resp Rate: 20
[2017-11-05] MEDS: Lactated Ringers 1,000 ML IV SCH (08:33)
[2017-11-05] MEDS ORDERED: Polyethylene Glycol 3350 Powder 17 GM Packet PO SCH (09:00)
--- NOTE | 2017-11-05 09:02 | PCM.SURGPN ---
- General Info Date of Service: 11/05/17 Date of Surgery/Procedure: 11/04/17 POD#: 1 Post-Op Diagnosis: appendicitis Functional Status: Reports: Pain Controlled, Tolerating Diet, Ambulating, Urinating - Review of Systems General: Reports: No Symptoms Pulmonary: Reports: No Symptoms Cardiovascular: Reports: No Symptoms Gastrointestinal: Reports: No Symptoms Genitourinary: Reports: No Symptoms - Patient Data Vitals - Most Recent: Last Vital Signs Temp 37.1 C 11/05/17 08:00 Pulse 90 11/05/17 08:00 Resp 18 11/05/17 08:00 BP 117/57 L 11/05/17 08:00 Pulse Ox 95 11/05/17 08:00 Weight - Most Recent: 108 kg I&O - Last 24 Hours: Intake & Output 11/04/17 11/05/17 11/05/17 22:59 06:59 14:59 Intake Total 2150 1721 999 Output Total 600 1200 Balance 1550 521 999 Lab Results Last 24 Hrs: Laboratory Results - last 24 hr 11/04/17 11/04/17 Range/Units 08:32 10:47 Sodium 140 (136-148) mmol/L Potassium 4.2 (3.5-5.1) mmol/L Chloride 105 (98-107) mmol/L Carbon Dioxide 27.2 (21.0-32.0) mmol/L BUN 15 (7.0-18.0) mg/dL Creatinine 1.0 (0.8-1.3) mg/dL Est Cr Clr Drug Dosing 101.90 mL/min Estimated GFR (MDRD) > 60.0 ml/min Glucose 127 H (74-106) mg/dL Calcium 9.5 (8.5-10.1) mg/dL Total Bilirubin 0.3 (0.2-1.0) mg/dL AST 18 (15-37) IU/L ALT 29 (14-63) IU/L Alkaline Phosphatase 122 H (46-116) U/L Total Protein 8.0 (6.4-8.2) g/dL Albumin 4.2 (3.4-5.0) g/dL Globulin 3.8 H (2.0-3.5) g/dL Albumin/Globulin Ratio 1.1 L (1.3-2.8) Lipase 79 (73-393) U/L Urine Color YELLOW Urine Appearance CLEAR Urine pH 5.5 (5.0-8.0) Ur Specific [employer] [place] >= 1.030 (1.001-1.035) Urine Protein NEGATIVE (NEGATIVE) mg/dL Urine Glucose (UA) NEGATIVE (NEGATIVE) mg/dL Urine Ketones NEGATIVE (NEGATIVE) mg/dL Urine Occult Blood NEGATIVE (NEGATIVE) Urine Nitrite NEGATIVE (NEGATIVE) Urine Bilirubin NEGATIVE (NEGATIVE) Urine Urobilinogen 0.2 (<2.0) EU/dL Ur Leukocyte Esterase NEGATIVE (NEGATIVE) Urine RBC 0-1 (0-2/HPF) Urine WBC NONE SEEN (0-5/HPF) Ur Epithelial Cells RARE (NONE-FEW) Amorphous Sediment RARE (NEGATIVE) Urine Bacteria RARE (NEGATIVE) Med Orders - Current: Current Medications Hydromorphone HCl (Dilaudid) 0.5 mg IVPUSH Q1H PRN PRN Reason: Pain (severe 7-10) Last Admin: 11/04/17 20:08 Dose: 0.5 mg Lactated Ringer's (Ringers, Lactated) 1,000 mls @ 125 mls/hr IV ASDIRECTED [facility] Last Admin: 11/05/17 08:33 Dose: 125 mls/hr Acetaminophen 1,000 mg/ Premix 100 mls @ 400 mls/hr IV NOW PRN PRN Reason: Pain Last Admin: 11/04/17 17:00 Dose: 400 mls/hr Piperacillin Sod/Tazobactam (Sod 3.375 gm/ Sodium Chloride) 50 mls @ 100 mls/ hr IV Q8H [facility] Last Admin: 11/05/17 03:51 Dose: 100 mls/hr Ondansetron HCl (Zofran) 4 mg IVPUSH Q6H PRN PRN Reason: Nausea/Vomiting Oxycodone/Acetaminophen (Percocet 325-5 Mg) 2 tab PO Q4H PRN PRN Reason: Pain (moderate 4-6) Last Admin: 11/05/17 06:49 Dose: 2 tab Polyethylene Glycol (Miralax) 17 gm PO DAILY [facility] Last Admin: 11/05/17 08:33 Dose: 17 gm Promethazine HCl (Phenergan) 25 mg IM Q6H PRN PRN Reason: Nausea Sodium Chloride (Saline Flush) 10 ml FLUSH ASDIRECTED PRN PRN Reason: Keep Vein Open Sodium Chloride (Saline Flush) 2.5 ml FLUSH ASDIRECTED PRN PRN Reason: Keep Vein Open Sodium Chloride (Saline Flush) 10 ml FLUSH ASDIRECTED PRN PRN Reason: Keep Vein Open Sodium Chloride (Saline Flush) 2.5 ml FLUSH ASDIRECTED PRN PRN Reason: Keep Vein Open Discontinued Medications Atropine Sulfate (Atropine 1 Mg/Ml) Confirm Administered Dose 2 mg .ROUTE .STK- MED ONE Stop: 11/04/17 15:08 Atropine Sulfate (Atropine 1 Mg/Ml) Confirm Administered Dose 1 mg .ROUTE .STK- MED ONE Stop: 11/04/17 15:52 Atropine Sulfate (Atropine 1 Mg/Ml) Confirm Administered Dose 1 mg .ROUTE .STK- MED ONE Stop: 11/04/17 16:05 Atropine Sulfate (Atropine 1 Mg/Ml) Confirm Administered Dose 1 mg .ROUTE .STK- MED ONE Stop: 11/04/17 16:14 Bupivacaine HCl (Marcaine 0.5%) Confirm Administered Dose 30 ml .ROUTE .STK-MED ONE Stop: 11/04/17 13:08 Dexamethasone (Dexamethasone) Confirm Administered Dose 20 mg .ROUTE .STK-MED ONE Stop: 11/04/17 14:17 Fentanyl (Sublimaze) Confirm Administered Dose 100 mcg .ROUTE .STK-MED ONE Stop: 11/04/17 13:17 Fentanyl (Sublimaze) 50 - 100 mcg IVPUSH Q5M PRN PRN Reason: Pain Stop: 11/04/17 17:00 Hydromorphone HCl (Dilaudid) Confirm Administered Dose 2 mg .ROUTE .STK-MED ONE Stop: 11/04/17 14:20 Sodium Chloride (Normal Saline) 1,000 mls @ 999 mls/hr IV .Bolus ONE Stop: 11/04/17 09:25 Last Admin: 11/04/17 08:35 Dose: 999 mls/hr Sodium Chloride (Normal Saline) 1,000 mls @ 999 mls/hr IV .Bolus ONE Stop: 11/04/17 11:58 Last Admin: 11/04/17 11:55 Dose: 999 mls/hr Piperacillin Sod/Tazobactam (Sod 3.375 gm/ Sodium Chloride) 50 mls @ 100 mls/ hr IV ONETIME ONE Stop: 11/04/17 13:35 Last Admin: 11/04/17 13:48 Dose: 100 mls/hr Sodium Chloride (Normal Saline) Confirm Administered Dose 20 mls @ as directed .ROUTE .STK-MED ONE Stop: 11/04/17 15:15 Acetaminophen (Ofirmev) Confirm Administered Dose 100 mls @ as directed IV .STK- MED ONE Stop: 11/04/17 16:54 Iopamidol (Isovue Multipack-370 (76%)) 100 ml IVPUSH ONETIME STA Stop: 11/04/17 11:16 Last Admin: 11/04/17 11:17 Dose: 100 ml Lidocaine (Xylocaine-Mpf 2%) Confirm Administered Dose 5 ml .ROUTE .STK-MED ONE Stop: 11/04/17 13:17 Midazolam HCl (Versed 1 Mg/Ml) Confirm Administered Dose 2 mg .ROUTE .STK-MED ONE Stop: 11/04/17 13:17 Morphine Sulfate (Morphine) 2 mg IVPUSH ONETIME ONE Stop: 11/04/17 08:26 Last Admin: 11/04/17 08:41 Dose: 2 mg Morphine Sulfate (Morphine) 4 mg IVPUSH ONETIME ONE Stop: 11/04/17 09:11 Last Admin: 11/04/17 10:07 Dose: 2 mg Neostigmine Methylsulfate (Neostigmine) Confirm Administered Dose 5 mg .ROUTE .STK-MED ONE Stop: 11/04/17 15:08 Neostigmine Methylsulfate (Neostigmine) Confirm Administered Dose 5 mg .ROUTE .STK-MED ONE Stop: 11/04/17 16:05 Ondansetron HCl (Zofran) 4 mg IVPUSH ONETIME ONE Stop: 11/04/17 08:26 Last Admin: 11/04/17 08:38 Dose: 4 mg Ondansetron HCl (Zofran) Confirm Administered Dose 4 mg .ROUTE .STK-MED ONE Stop: 11/04/17 14:17 Propofol (Diprivan 20 Ml) Confirm Administered Dose 200 mg .ROUTE .STK-MED ONE Stop: 11/04/17 13:17 Rocuronium [place] (Zemuron) Confirm Administered Dose 100 mg .ROUTE .STK-MED ONE Stop: 11/04/17 13:17 Vecuronium [place] (Vecuronium) Confirm Administered Dose 10 mg .ROUTE .STK-MED ONE Stop: 11/04/17 15:15 - Exam Wound/Incisions: Dressing Dry and Intact General: Alert, Oriented HEENT: Pupils Equal, Pupils Reactive Lungs: Normal Respiratory Effort Cardiovascular: Regular Rate GI/Abdominal Exam: Soft, Non-Tender, No Distention, No Mass Extremities: Normal Inspection Skin: Warm, Dry, Intact Neurological: No New Focal Deficit Psy/Mental Status: Alert, Normal Affect, Normal Mood - Problem List & Annotations (1) Appendicitis SNOMED Code(s): 86465184 Code(s): K37 - UNSPECIFIED APPENDICITIS Status: Acute Current Visit: Yes - Problem List Review Problem List Initiated/Reviewed/Updated: Yes - My Orders Last 24 Hours: Active Orders 24 hr Category Date Time Status Patient Status [ADT] Routine ADT 11/04/17 13:11 Active Oxygen Therapy [RC] PRN Care 11/04/17 16:19 Active Pulse Oximetry [RC] ASDIRECTED Care 11/04/17 16:23 Active RT Incentive Spirometry [RC] Q1HWA Care 11/04/17 16:19 Active Up ad Casie [RC] ASDIRECTED Care 11/04/17 16:19 Active Verify Patient Consent Obtain [RC] ASDIRECTED Care 11/04/17 13:11 Active Vital Signs [RC] PER UNIT ROUTINE Care 11/04/17 16:19 Active Clear Liquid Diet [DIET] Diet 11/04/17 Dinner Active Regular Diet [DIET] Diet 11/05/17 Lunch Ordered Acetaminophen [Ofirmev] 1,000 mg Med 11/04/17 15:42 Active Premix Bag 1 bag IV NOW Acetaminophen/oxyCODONE [Percocet 325-5 MG] Med 11/04/17 16:19 Active 2 tab PO Q4H PRN HYDROmorphone [Dilaudid] Med 11/04/17 16:19 Active 0.5 mg IVPUSH Q1H PRN Lactated Ringers [Ringers, Lactated] 1,000 ml Med 11/04/17 13:15 Active IV ASDIRECTED Ondansetron [Zofran] Med 11/04/17 16:19 Active 4 mg IVPUSH Q6H PRN Piperacillin/Tazobactam [Piperacil-Tazobact] 3.375 gm Med 11/04/17 20:00 Active Sodium Chloride 0.9% [Normal Saline] 50 ml IV Q8H Polyethylene Glycol 3350 [MiraLAX] Med 11/05/17 09:00 Active 17 gm PO DAILY Promethazine [Phenergan] Med 11/04/17 16:19 Active 25 mg IM Q6H PRN Sodium Chloride 0.9% [Saline Flush] Med 11/04/17 08:25 Active 10 ml FLUSH ASDIRECTED PRN Sodium Chloride 0.9% [Saline Flush] Med 11/04/17 13:11 Active 10 ml FLUSH ASDIRECTED PRN Sodium Chloride 0.9% [Saline Flush] Med 11/04/17 08:25 Active 2.5 ml FLUSH ASDIRECTED PRN Sodium Chloride 0.9% [Saline Flush] Med 11/04/17 13:11 Active 2.5 ml FLUSH ASDIRECTED PRN Peripheral IV Insertion Adult [OM.PC] Routine Oth 11/04/17 13:11 Ordered Saline Lock Insert [OM.PC] Stat Oth 11/04/17 08:25 Ordered Sequential Compression Device [OM.PC] Routine Oth 11/04/17 13:11 Ordered Resuscitation Status Routine Resus Stat 11/04/17 13:11 Ordered Medication Orders Hydromorphone HCl (Dilaudid) 0.5 mg IVPUSH Q1H PRN PRN Reason: Pain (severe 7-10) Last Admin: 11/04/17 20:08 Dose: 0.5 mg Lactated Ringer's (Ringers, Lactated) 1,000 mls @ 125 mls/hr IV ASDIRECTED [facility] Last Admin: 11/05/17 08:33 Dose: 125 mls/hr Infusion: 11/05/17 07:45 Dose: 125 mls/hr Admin: 11/04/17 23:45 Dose: 125 mls/hr Acetaminophen 1,000 mg/ Premix 100 mls @ 400 mls/hr IV NOW PRN PRN Reason: Pain Last Admin: 11/04/17 17:00 Dose: 400 mls/hr Piperacillin Sod/Tazobactam (Sod 3.375 gm/ Sodium Chloride) 50 mls @ 100 mls/ hr IV Q8H [facility] Last Admin: 11/05/17 03:51 Dose: 100 mls/hr Infusion: 11/04/17 21:03 Dose: 100 mls/hr Admin: 11/04/17 20:33 Dose: 100 mls/hr Ondansetron HCl (Zofran) 4 mg IVPUSH Q6H PRN PRN Reason: Nausea/Vomiting Oxycodone/Acetaminophen (Percocet 325-5 Mg) 2 tab PO Q4H PRN PRN Reason: Pain (moderate 4-6) Last Admin: 11/05/17 06:49 Dose: 2 tab Admin: 11/05/17 00:01 Dose: 2 tab Polyethylene Glycol (Miralax) 17 gm PO DAILY [facility] Last Admin: 11/05/17 08:33 Dose: 17 gm Promethazine HCl (Phenergan) 25 mg IM Q6H PRN PRN Reason: Nausea Sodium Chloride (Saline Flush) 10 ml FLUSH ASDIRECTED PRN PRN Reason: Keep Vein Open Sodium Chloride (Saline Flush) 2.5 ml FLUSH ASDIRECTED PRN PRN Reason: Keep Vein Open Sodium Chloride (Saline Flush) 10 ml FLUSH ASDIRECTED PRN PRN Reason: Keep Vein Open Sodium Chloride (Saline Flush) 2.5 ml FLUSH ASDIRECTED PRN PRN Reason: Keep Vein Open - Plan Plan (Free Text/Narrative):: Patients diet can be advanced to regular. If he tolerates this he can be discharged home. Pain: Percocet 325-5mg 1-2 tabs q4hr prn pain Cardiopulmonary: Patient has sleep apnea. Will have him establish care with PCP and get referred for a sleep study as outpatient. GI: Regular diet as tolerated. I explained that he should eat small frequent meals at first. Miralax for next two weeks to promote good BM. Renal: UOP adequate Heme/ID: no need for outpatient antibiotics Activity: No lifting >20lb for 4 weeks after surgery. No work for minimum of one week.
== END 2017-11-05 11:10 | disposition home or self-care (01) ==
LOC: MW.ED 08:17 → MW.SDS 13:00 → MW.MS 15:16 → MW.SDS 11-05 11:10
PROVIDERS: ATTEND Surgery
DX: K35.80 Unspecified acute appendicitis (principal); E66.9 Obesity, unspecified; Z87.891 Personal history of nicotine dependence; Z68.38 Body mass index [BMI] 38.0-38.9, adult
CPT/HCPCS: 36415; 44970; 74177; 76705; 80053; 81001; 83690; 85025; 96361; 96374; 96375; 96376; 99285; A9270; J0131; J0461; J1100; J1170; J2250; J2270; J2405; J2543; J2704; J3010; J3490; J7040; J7050; J7120; Q9967; 88304; 99283

== ENCOUNTER 2018-05-31 10:04 | Emergency (ER) | payer OTHER ==
[2018-05-31] MEDS ORDERED: Ondansetron 4 MG/2 ML SDV IVPUSH ONE (10:33)
[2018-05-31] MEDS ORDERED: Ketorolac 30 MG/ML SDV IVPUSH ONE (10:33)
[2018-05-31] MEDS ORDERED: Sodium Chloride 0.9% 1,000 ML IV ONE (10:33)
--- NOTE | 2018-05-31 10:33 | EDM.PDOC ---
ED HPI GENERAL MEDICAL PROBLEM - General Chief Complaint: Abdominal Pain Stated Complaint: ABD PAIN Time Seen by Provider: 05/31/18 10:28 Source of Information: Reports: Patient History Limitations: Reports: No Limitations - History of Present Illness INITIAL COMMENTS - FREE TEXT/NARRATIVE: HISTORY AND PHYSICAL: History of present illness: Patient is a 28-year-old male presents to the ED today for concern of right upper quadrant pain that he rates a 10 out of 10 and sharp since this morning. Patient states he feels as if the pain radiates to the back and across to the left of his abdomen. Patient does have a history of appendectomy. Patient has not been able to eat or drink since this morning due to the pain. Patient states he has vomited 2 separate occasions this morning Patient denies fever, chills, chest pain, shortness of breath, or cough. Denies headache, neck stiff ness, change in vision, syncope, or near syncope. Denies diarrhea, constipation, or dysuria. Has not noted any blood in urine or stool. Patient has been eating and drinking appropriately. Review of systems: As per history of present illness and below otherwise all systems reviewed and negative. Past medical history: As per history of present illness and as reviewed below otherwise noncontributory. Surgical history: As per history of present illness and as reviewed below otherwise noncontributory. Social history: See social history for further information Family history: As per history of present illness and as reviewed below otherwise noncontributory. Physical exam: General: Patient is alert, oriented, and in no acute distress. Patient sitting comfortably on exam table. HEENT: Atraumatic, normocephalic, pupils equal and reactive bilaterally, negative for conjunctival pallor or scleral icterus, mucous membranes moist, TMs normal bilaterally, throat clear, neck supple, nontender, trachea midline. No drooling or trismus noted. No meningeal signs. No hot potato voice noted. Lungs: Clear to auscultation, breath sounds equal bilaterally, chest nontender. Heart: S1S2, regular rate and rhythm without overt murmur Abdomen: Moderate pain to palpation of the right upper quadrant. Positive Brown sign. Obese, soft, nondistended. Negative for masses or hepatosplenomegaly. Negative for costovertebral tenderness. Pelvis: Stable nontender. Genitourinary: Deferred. Rectal: Deferred. Skin: Intact, warm, dry. No lesions or rashes noted. Extremities: Atraumatic, negative for cords or calf pain. Neurovascular unremarkable. Neuro: Awake, alert, oriented. Cranial nerves II through XII unremarkable. Cerebellum unremarkable. Motor and sensory unremarkable throughout. Exam nonfocal. Notes: Abdominal ultrasound shows no acute findings in the abdomen or pelvis. There is a small subpleural nodule in the left lower lung base measuring approximately 3 mm that appears benign. Patient was informed of these findings. Discussed the importance of follow-up with the primary care provider. Supportive care measures were reviewed and discussed. Voices understanding and is agreeable to plan of care. Denies any further questions or concerns at this time. Diagnostics: CBC, CMP, UA, lipase, h. pylori, abdominal/pelvic CT Therapeutics: Saline, Toradol, Zofran, Morphine Prescription: Zofran Impression: Right upper quadrant abdominal pain, unspecified. Plan: 1. You can alternate Tylenol and ibuprofen as directed for pain and discomfort. 2. Follow-up with your primary care provider as discussed. 3. Return to the ED as needed and as discussed. Definitive disposition and diagnosis as appropriate pending reevaluation and review of above. Upper Abdomen Pain Score (Numeric/FACES): 10 - Related Data Allergies Allergy/AdvReac Type Severity Reaction Status Date / Time No Known Allergies Allergy Verified 05/31/18 10:14 Home Meds: Home Meds Ondansetron [Zofran ODT] 4 mg PO Q6H PRN #8 tab.dis 05/31/18 [Rx] Past Medical History - Past Health History Medical/Surgical History: Denies Medical/Surgical History Respiratory History: Reports: Sleep Apnea Endocrine/Metabolic History: Reports: Obesity/BMI 30+ - Infectious Disease History Infectious Disease History: Reports: Chicken Pox - Past Surgical History HEENT Surgical History: Reports: Adenoidectomy, Naso-Sinus Surgery, Tonsillectomy Respiratory Surgical History: Reports: None GI Surgical History: Reports: Appendectomy Social & Family History - Family History Family Medical History: Noncontributory - Tobacco Use Smoking Status *Q: Never Smoker - Caffeine Use Caffeine Use: Reports: Coffee - Recreational Drug Use Recreational Drug Use: No ED ROS GENERAL - Review of Systems Review Of Systems: ROS reveals no pertinent complaints other than HPI. ED EXAM, GI/ABD - Physical Exam Exam: See Below (See dictation) Course - Vital Signs Last Recorded V/S: Last Vital Signs Temp 36.8 C 05/31/18 12:32 Pulse 74 05/31/18 12:32 Resp 16 05/31/18 12:32 BP 119/82 05/31/18 12:32 Pulse Ox 97 05/31/18 12:32 - Orders/Labs/Meds Orders: Active Orders 24 hr Category Date Time Status HELICOBACTER PYLORI AB IGG [CHEM] Stat Lab 05/31/18 12:56 Ordered Labs: Laboratory Tests 05/31/18 05/31/18 05/31/18 Range/Units 10:40 10:40 12:36 WBC 10.61 (4.0-11.0) K/uL RBC 5.15 (4.50-5.90) M/uL Hgb 15.3 (13.0-17.0) g/dL Hct 44.2 (38.0-50.0) % MCV 85.8 (80.0-98.0) fL MCH 29.7 (27.0-32.0) pg MCHC 34.6 (31.0-37.0) g/dL RDW Std Deviation 41.9 (28.0-62.0) fl RDW Coeff of Horace 14 (11.0-15.0) % Plt Count 217 (150-400) K/uL MPV 9.80 (7.40-12.00) fL Neut % (Auto) 85.5 H (48.0-80.0) % Lymph % (Auto) 10.5 L (16.0-40.0) % [place] % (Auto) 3.2 (0.0-15.0) % Eos % (Auto) 0.4 (0.0-7.0) % Baso % (Auto) 0.4 (0.0-1.5) % Neut # (Auto) 9.1 H (1.4-5.7) K/uL Lymph # (Auto) 1.1 (0.6-2.4) K/uL [place] # (Auto) 0.3 (0.0-0.8) K/uL Eos # (Auto) 0.0 (0.0-0.7) K/uL Baso # (Auto) 0.0 (0.0-0.1) K/uL Nucleated RBC % 0.0 /100WBC Nucleated RBCs # 0 K/uL Sodium 140 (136-148) mmol/L Potassium 4.2 (3.5-5.1) mmol/L Chloride 106 (98-107) mmol/L Carbon Dioxide 26.2 (21.0-32.0) mmol/L BUN 17 (7.0-18.0) mg/dL Creatinine 1.0 (0.8-1.3) mg/dL Est Cr Clr Drug Dosing 101.02 mL/min Estimated GFR (MDRD) > 60.0 ml/min Glucose 140 H (74-106) mg/dL Calcium 8.9 (8.5-10.1) mg/dL Total Bilirubin 0.4 (0.2-1.0) mg/dL AST 17 (15-37) IU/L ALT 39 (14-63) IU/L Alkaline Phosphatase 128 H (46-116) U/L Total Protein 7.9 (6.4-8.2) g/dL Albumin 4.2 (3.4-5.0) g/dL Globulin 3.7 (2.6-4.0) g/dL Albumin/Globulin Ratio 1.1 (0.9-1.6) Lipase 55 L (73-393) U/L Urine Color YELLOW Urine Appearance CLEAR Urine pH 7.5 (5.0-8.0) Ur Specific [place] 1.015 (1.001-1.035) Urine Protein NEGATIVE (NEGATIVE) mg/dL Urine Glucose (UA) NEGATIVE (NEGATIVE) mg/dL Urine Ketones NEGATIVE (NEGATIVE) mg/dL Urine Occult Blood NEGATIVE (NEGATIVE) Urine Nitrite NEGATIVE (NEGATIVE) Urine Bilirubin NEGATIVE (NEGATIVE) Urine Urobilinogen 0.2 (<2.0) EU/dL Ur Leukocyte Esterase NEGATIVE (NEGATIVE) Meds: Medications Discontinued Medications Generic Name Dose Route Start Last Admin Trade Name Freq PRN Reason Stop Dose Admin Sodium Chloride 1,000 mls @ 999 mls/hr 05/31/18 10:33 05/31/18 10:44 Normal Saline IV 05/31/18 11:33 999 mls/hr BOLUS ONE Administration Iopamidol 100 ml 05/31/18 12:11 05/31/18 12:12 Isovue Multipack-370 (76%) IVPUSH 05/31/18 12:12 100 ml ONETIME STA Administration Ketorolac Tromethamine 30 mg 05/31/18 10:33 05/31/18 10:43 Toradol IVPUSH 05/31/18 10:34 30 mg ONETIME ONE Administration Morphine Sulfate 2 mg 05/31/18 11:14 05/31/18 11:19 Morphine IVPUSH 05/31/18 11:15 2 mg ONETIME ONE Administration Ondansetron HCl 4 mg 05/31/18 10:33 05/31/18 10:43 Zofran IVPUSH 05/31/18 10:34 4 mg ONETIME ONE Administration Departure - Departure Time of Disposition: 12:57 Disposition: Home, Self-Care 01 Clinical Impression: Right upper quadrant abdominal pain - Discharge Information Prescriptions: Ondansetron [Zofran ODT] 4 mg PO Q6H PRN #8 tab.dis PRN Reason: Nausea Referrals: PCP,None [Primary Care Provider] - Forms: ED Department Discharge Additional Instructions: The following information is given to patients seen in the emergency department who are being discharged to home. This information is to outline your options for follow-up care. We provide all patients seen in our emergency department with a follow-up referral. The need for follow-up, as well as the timing and circumstances, are variable depending upon the specifics of your emergency department visit. If you don't have a primary care physician on staff, we will provide you with a referral. We always advise you to contact your personal physician following an emergency department visit to inform them of the circumstance of the visit and for follow-up with them and/or the need for any referrals to a consulting specialist. The emergency department will also refer you to a specialist when appropriate. This referral assures that you have the opportunity for follow-up care with a specialist. All of these measure are taken in an effort to provide you with optimal care, which includes your follow-up. Under all circumstances we always encourage you to contact your private physician who remains a resource for coordinating your care. When calling for follow-up care, please make the office aware that this follow-up is from your recent emergency room visit. If for any reason you are refused follow-up, please contact the [facility] Emergency Department at and asked to speak to the emergency department charge nurse. [facility] [address] [place] [address] [facility] [address] [place] [address] 1. You can alternate Tylenol and ibuprofen as directed for pain and discomfort. 2. Follow-up with your primary care provider as discussed. 3. Return to the ED as needed and as discussed. - My Orders Last 24 Hours: My Active Orders 05/31/18 12:56 HELICOBACTER PYLORI AB IGG [CHEM] Stat - Assessment/Plan Last 24 Hours: My Active Orders 05/31/18 12:56 HELICOBACTER PYLORI AB IGG [CHEM] Stat
[2018-05-31] MEDS ORDERED: Morphine 2 MG/ML Syringe IVPUSH ONE (11:14)
[2018-05-31 11:19] LABS: CHLORIDE,CL 106 mmol/L (98-107); SODIUM,NA 140 mmol/L (136-148)
[2018-05-31] MEDS ORDERED: Iopamidol 755 MG/ML 500 ML Multipack Bottle IVPUSH STA (12:11)
--- NOTE | 2018-05-31 12:37 | CT ---
CT of the abdomen and pelvis with contrast. HISTORY: Pain TECHNIQUE: Axial CT images were obtained of the abdomen and pelvis following administration of 100 mL of Isovue-370 in the left antecubital fossa without complication. Coronal and sagittal reconstructions obtained. FINDINGS: The lung bases are clear, no pleural effusion. Tiny subpleural nodule within the left lower lobe laterally measuring 3 mm. Likely benign given the patient's age. The liver, spleen, adrenal glands, and pancreas appear normal. The gallbladder is normal. There is no bulky retroperitoneal lymphadenopathy or abdominal ascites. The kidneys enhance and function symmetrically without evidence of obstructive uropathy. Renal cortical cysts are noted. The large and small bowel are normal in caliber without evidence of obstruction. No focal pericolonic inflammation or stranding. Appendectomy. No bulky pelvic lymphadenopathy or free pelvic fluid. The urinary bladder is normal. No suspicious osseous abnormalities identified. IMPRESSION: No acute findings within the abdomen or pelvis.
== END 2018-05-31 13:36 | disposition home or self-care (01) ==
LOC: MW.ED 10:04
DX: R10.11 Right upper quadrant pain (principal); E66.9 Obesity, unspecified
CPT/HCPCS: 36415; 74177; 80053; 81003; 83690; 85025; 86677; 96361; 96374; 96375; 99284; J1885; J2270; J2405; J7040; Q9967

== ENCOUNTER 2018-11-03 04:55 | Emergency (ER) | payer OTHER ==
[2018-11-03] MEDS ORDERED: Sodium Chloride 0.9% 2.5 ML Syringe FLUSH PRN (04:58)
[2018-11-03] MEDS ORDERED: Ondansetron 4 MG/2 ML SDV IVPUSH ONE (04:58)
[2018-11-03] MEDS ORDERED: Sodium Chloride 0.9% 1,000 ML IV ONE (04:58)
[2018-11-03] MEDS ORDERED: HYDROmorphone 1 MG/ML Syringe IVPUSH ONE ×2 (04:58→05:11)
[2018-11-03] MEDS ORDERED: Sodium Chloride 0.9% 10 ML Syringe FLUSH PRN (04:58)
--- NOTE | 2018-11-03 05:05 | EDM.PDOC ---
<Seema Tyler - Last Filed: 11/03/18 06:56> ED HPI GENERAL MEDICAL PROBLEM - General Chief Complaint: Abdominal Pain Stated Complaint: ABDOMINAL PAIN Time Seen by Provider: 11/03/18 04:57 - History of Present Illness INITIAL COMMENTS - FREE TEXT/NARRATIVE: HISTORY AND PHYSICAL: History of present illness: The patient is a 28 y/o male with a history of an appendectomy no other GI history who presents with sudden onset of right upper quadrant pain that started several hours ago. The patient ate spare ribs for dinner but denies any history of food intolerance presents with sudden onset of pain associated with nausea and vomiting but no diarrhea. He tells me that he had a normal bowel movement earlier today and no recent fevers chills chest pain shortness of breath or urinary symptoms. Patient says the pain originates in the right upper quadrant but does radiate around to his upper back and flank area. The pain does not radiate to his right lower quadrant area patient denies any recent trauma or upper respiratory symptoms and has no cough chest pain or shortness of breath. He is grunting moaning and grabbing his right side on my evaluation and says that the pain is intense. This patient was seen here in May of this year for similar presentation and had a negative workup including a negative CAT scan and did not follow-up to have further testing on his gallbladder. Review of systems: As per history of present illness and below otherwise all systems reviewed and negative. Past medical history: As per history of present illness and as reviewed below otherwise noncontributory. Surgical history: As per history of present illness and as reviewed below otherwise noncontributory. Social history: No reported history of drug or alcohol abuse. Family history: As per history of present illness and as reviewed below otherwise noncontributory. Physical exam: General: Well-developed well-nourished mildly overweight man who is nontoxic and vital signs were noted by me. He is grunting and rolling about in the bed and vital signs are noted by me HEENT: Atraumatic, normocephalic, negative for conjunctival pallor or scleral icterus, mucous membranes moist, throat clear, neck supple, nontender, trachea midline. Lungs: Clear to auscultation, breath sounds equal bilaterally, chest nontender. Heart: S1S2, regular rate and rhythm no overt murmurs Abdomen: Soft, nondistended, bowel sounds are hypoactive and there is tenderness in the right upper quadrant on even minimal palpation with some voluntary guarding but no rebound. The remainder the abdomen is without any tenderness Negative for masses or hepatosplenomegaly. Negative for costovertebral tenderness. Pelvis: Stable nontender. Genitourinary: Deferred. Rectal: Deferred. Extremities: Atraumatic, negative for cords or calf pain. Neurovascular unremarkable. Neuro: Awake, alert, oriented. Cranial nerves II through XII unremarkable. Cerebellum unremarkable. Motor and sensory unremarkable throughout. Exam nonfocal. Diagnostics: CBC CMP amylase lipase UA with reflex abdominal ultrasound urine culture lactate Therapeutics: IV fluids Dilaudid Zofran Toradol; the patient is saying that the Dilaudid is not working and he would like to have morphine instead as this is what he received last time along with the Toradol and it seemed to help his pain significantly. Initially a CT scan of the abdomen and pelvis was ordered to gain the most information but both the and the patient feel that he had a CAT scan in May for a similar episode of right upper quadrant pain and it did not yield any information and they were concerned about the cost of the CAT scan to be repeated again. They are aware of the lab tests that I performed including a WBC count of 14.19 with 2% bands as well as the slight elevation in alkaline phosphatase. They're agreeable to do a limited abdominal ultrasound to evaluate the gallbladder more specifically. Patient is still very uncomfortable despite the Dilaudid and Ativan so we will try some morphine and he is alert he received the Toradol. He feels that because the morphine worked last time that he would like to try that instead. Patient is improved with pain management with the morphine and we are currently awaiting the ergonomics technician to arrive perform his scan. I discussed with the patient and at bedside that we are waiting for the ultrasound and that with the elevated white cell count it would be very concerning to send him home in light of how much medication as taken to even get him trending in the right direction of pain control. He is still not pain- free and intermittently does look uncomfortable. I will discuss this case with Dr. Cornell who is on-call currently as she or the next surgeon on-call at 7 AM will need to come and evaluate this patient. I did discuss with the patient and the that in light of the amount of medication required to even start controlling his pain and his leukocytosis he would likely need admission. He is already stating that that will be difficult for him to do as he cannot miss work. I told him and that we can rediscuss this once we get the ultrasound results [id number]: Dr Cornell aware of case and on consult 7a: case was endorsed to Dr. Stock will follow-up the abdominal ultrasound results and recontact the surgeon with those testing results for consultation. Impression: Right upper quadrant pain with leukocytosis Definitive disposition and diagnosis as appropriate pending reevaluation and review of above. RUQ Pain Score (Numeric/FACES): 10 - Related Data Allergies Allergy/AdvReac Type Severity Reaction Status Date / Time No Known Allergies Allergy Verified 11/03/18 04:58 Home Meds: Home Meds Hyoscyamine Sulfate [Levsin] 0.125 mg PO TID PRN #20 tablet 11/03/18 [Rx] Ondansetron [Zofran ODT] 4 mg PO Q6H PRN #12 tab.dis 11/03/18 [Rx] traMADol HCl [Tramadol HCl] 50 mg PO Q6H PRN #16 tablet 11/03/18 [Rx] Past Medical History - Past Health History Medical/Surgical History: Denies Medical/Surgical History Respiratory History: Reports: Sleep Apnea Endocrine/Metabolic History: Reports: Obesity/BMI 30+ - Infectious Disease History Infectious Disease History: Reports: Chicken Pox - Past Surgical History HEENT Surgical History: Reports: Adenoidectomy, Naso-Sinus Surgery, Tonsillectomy Respiratory Surgical History: Reports: None GI Surgical History: Reports: Appendectomy Social & Family History - Family History Family Medical History: Noncontributory - Caffeine Use Caffeine Use: Reports: Coffee ED ROS GENERAL - Review of Systems Review Of Systems: ROS reveals no pertinent complaints other than HPI. ED EXAM, GENERAL - Physical Exam Exam: See Below (see Dictation) Course - Vital Signs Last Recorded V/S: Last Vital Signs Temp 97.1 F 11/03/18 04:58 Pulse 89 11/03/18 06:33 Resp 18 11/03/18 06:33 BP 133/83 11/03/18 06:33 Pulse Ox 98 11/03/18 06:33 - Orders/Labs/Meds Orders: Active Orders 24 hr Category Date Time Status Notify Provider Consults [RC] ASDIRECTED Care 11/03/18 06:55 Active Consult to Physician [CONS] Stat Cons 11/03/18 06:55 Active CULTURE URINE [RM] Stat Lab 11/03/18 05:00 Received Sodium Chloride 0.9% [Saline Flush] Med 11/03/18 04:58 Active 10 ml FLUSH ASDIRECTED PRN Sodium Chloride 0.9% [Saline Flush] Med 11/03/18 04:58 Active 2.5 ml FLUSH ASDIRECTED PRN Saline Lock Insert [OM.PC] Stat Oth 11/03/18 04:57 Ordered Medication Orders Sodium Chloride (Saline Flush) 10 ml FLUSH ASDIRECTED PRN PRN Reason: Keep Vein Open Sodium Chloride (Saline Flush) 2.5 ml FLUSH ASDIRECTED PRN PRN Reason: Keep Vein Open Labs: Laboratory Tests 11/03/18 11/03/18 11/03/18 Range/Units 05:00 05:00 05:00 WBC 14.19 H (4.0-11.0) K/uL RBC 5.33 (4.50-5.90) M/uL Hgb 16.5 (13.0-17.0) g/dL Hct 47.2 (38.0-50.0) % MCV 88.6 (80.0-98.0) fL MCH 31.0 (27.0-32.0) pg MCHC 35.0 (31.0-37.0) g/dL RDW Std Deviation 42.7 (28.0-62.0) fl RDW Coeff of Horace 13 (11.0-15.0) % Plt Count 243 (150-400) K/uL MPV 10.00 (7.40-12.00) fL Add Manual Diff YES Neutrophils % (Manual) 61 (48.0-80.0) % Band Neutrophils % 2 % Lymphocytes % (Manual) 30 (16.0-40.0) % Monocytes % (Manual) 3 (0.0-15.0) % Eosinophils % (Manual) 1 (0.0-7.0) % Basophils % (Manual) 2 H (0.0-1.5) % Nucleated RBC % 0.0 /100WBC Absolute Seg Neuts 8.7 H (1.4-5.7) Band Neutrophils # 0.3 Lymphocytes # (Manual) 4.3 H (0.6-2.4) Monocytes # (Manual) 0.4 (0.0-0.8) Eosinophils # (Manual) 0.1 (0.0-0.7) Basophils # (Manual) 0.3 H (0.0-0.1) Nucleated RBCs # 0 K/uL Reactive Lymphocytes FEW Lactate (0.20-2.00) mmol/L Sodium 143 (136-148) mmol/L Potassium 4.1 (3.5-5.1) mmol/L Chloride 104 (98-107) mmol/L Carbon Dioxide 26.2 (21.0-32.0) mmol/L BUN 18 (7.0-18.0) mg/dL Creatinine 1.3 (0.8-1.3) mg/dL Est Cr Clr Drug Dosing 77.71 mL/min Estimated GFR (MDRD) > 60.0 ml/min Glucose 118 H (74-106) mg/dL Calcium 9.9 (8.5-10.1) mg/dL Total Bilirubin 0.5 (0.2-1.0) mg/dL AST 16 (15-37) IU/L ALT 29 (14-63) IU/L Alkaline Phosphatase 131 H (46-116) U/L Total Protein 7.6 (6.4-8.2) g/dL Albumin 4.1 (3.4-5.0) g/dL Globulin 3.5 (2.6-4.0) g/dL Albumin/Globulin Ratio 1.2 (0.9-1.6) Amylase 64 (25-115) U/L Lipase 53 L (73-393) U/L Urine Color YELLOW Urine Appearance CLEAR Urine pH 5.5 (5.0-8.0) Ur Specific [place] >= 1.030 (1.001-1.035) Urine Protein NEGATIVE (NEGATIVE) mg/dL Urine Glucose (UA) NEGATIVE (NEGATIVE) mg/dL Urine Ketones NEGATIVE (NEGATIVE) mg/dL Urine Occult Blood TRACE-INTACT H (NEGATIVE) Urine Nitrite NEGATIVE (NEGATIVE) Urine Bilirubin NEGATIVE (NEGATIVE) Urine Urobilinogen 0.2 (<2.0) EU/dL Ur Leukocyte Esterase NEGATIVE (NEGATIVE) Urine RBC 0-1 (0-2/HPF) Urine WBC 0-2 (0-5/HPF) Ur Epithelial Cells RARE (NONE-FEW) Urine Bacteria 1+ H (NEGATIVE) Urine Mucus LIGHT (NONE-MOD) 11/03/18 Range/Units 05:37 WBC (4.0-11.0) K/uL RBC (4.50-5.90) M/uL Hgb (13.0-17.0) g/dL Hct (38.0-50.0) % MCV (80.0-98.0) fL MCH (27.0-32.0) pg MCHC (31.0-37.0) g/dL RDW Std Deviation (28.0-62.0) fl RDW Coeff of Horace (11.0-15.0) % Plt Count (150-400) K/uL MPV (7.40-12.00) fL Add Manual Diff Neutrophils % (Manual) (48.0-80.0) % Band Neutrophils % % Lymphocytes % (Manual) (16.0-40.0) % Monocytes % (Manual) (0.0-15.0) % Eosinophils % (Manual) (0.0-7.0) % Basophils % (Manual) (0.0-1.5) % Nucleated RBC % /100WBC Absolute Seg Neuts (1.4-5.7) Band Neutrophils # Lymphocytes # (Manual) (0.6-2.4) Monocytes # (Manual) (0.0-0.8) Eosinophils # (Manual) (0.0-0.7) Basophils # (Manual) (0.0-0.1) Nucleated RBCs # K/uL Reactive Lymphocytes Lactate 1.5 (0.20-2.00) mmol/L Sodium (136-148) mmol/L Potassium (3.5-5.1) mmol/L Chloride (98-107) mmol/L Carbon Dioxide (21.0-32.0) mmol/L BUN (7.0-18.0) mg/dL Creatinine (0.8-1.3) mg/dL Est Cr Clr Drug Dosing mL/min Estimated GFR (MDRD) ml/min Glucose (74-106) mg/dL Calcium (8.5-10.1) mg/dL Total Bilirubin (0.2-1.0) mg/dL AST (15-37) IU/L ALT (14-63) IU/L Alkaline Phosphatase (46-116) U/L Total Protein (6.4-8.2) g/dL Albumin (3.4-5.0) g/dL Globulin (2.6-4.0) g/dL Albumin/Globulin Ratio (0.9-1.6) Amylase (25-115) U/L Lipase (73-393) U/L Urine Color Urine Appearance Urine pH (5.0-8.0) Ur Specific [place] (1.001-1.035) Urine Protein (NEGATIVE) mg/dL Urine Glucose (UA) (NEGATIVE) mg/dL Urine Ketones (NEGATIVE) mg/dL Urine Occult Blood (NEGATIVE) Urine Nitrite (NEGATIVE) Urine Bilirubin (NEGATIVE) Urine Urobilinogen (<2.0) EU/dL Ur Leukocyte Esterase (NEGATIVE) Urine RBC (0-2/HPF) Urine WBC (0-5/HPF) Ur Epithelial Cells (NONE-FEW) Urine Bacteria (NEGATIVE) Urine Mucus (NONE-MOD) Meds: Medications Generic Name Dose Route Start Last Admin Trade Name Warren PRN Reason Stop Dose Admin Sodium Chloride 10 ml 11/03/18 04:58 Saline Flush FLUSH ASDIRECTED PRN Keep Vein Open Sodium Chloride 2.5 ml 11/03/18 04:58 Saline Flush FLUSH ASDIRECTED PRN Keep Vein Open Discontinued Medications Generic Name Dose Route Start Last Admin Trade Name Warren PRN Reason Stop Dose Admin Hydromorphone HCl 1 mg 11/03/18 04:58 11/03/18 05:04 Dilaudid IVPUSH 11/03/18 04:59 1 mg ONETIME ONE Administration Hydromorphone HCl 1 mg 11/03/18 05:11 11/03/18 05:16 Dilaudid IVPUSH 11/03/18 05:12 1 mg ONETIME ONE Administration Hyoscyamine 0.125 mg 11/03/18 08:10 11/03/18 08:16 Hyomax-Sl SL 11/03/18 08:11 0.125 mg ONETIME ONE Administration Sodium Chloride 1,000 mls @ 999 mls/hr 11/03/18 04:58 11/03/18 05:05 Normal Saline IV 11/03/18 05:58 999 mls/hr STAT ONE Administration Ketorolac Tromethamine 30 mg 11/03/18 05:26 11/03/18 05:33 Toradol IVPUSH 11/03/18 05:27 30 mg ONETIME ONE Administration Lorazepam 1 mg 11/03/18 05:11 11/03/18 05:15 Ativan IVPUSH 11/03/18 05:12 1 mg ONETIME ONE Administration Morphine Sulfate 7 mg 11/03/18 05:46 11/03/18 05:55 Morphine IVPUSH 11/03/18 05:47 7 mg ONETIME ONE Administration Ondansetron HCl 4 mg 11/03/18 04:58 11/03/18 05:04 Zofran IVPUSH 11/03/18 04:59 4 mg ONETIME ONE Administration Departure - Departure Disposition: Home, Self-Care 01 Clinical Impression: Right upper quadrant abdominal pain - Discharge Information Prescriptions: Hyoscyamine Sulfate [Levsin] 0.125 mg PO TID PRN #20 tablet PRN Reason: Pain Ondansetron [Zofran ODT] 4 mg PO Q6H PRN #12 tab.dis PRN Reason: Nausea traMADol HCl [Tramadol HCl] 50 mg PO Q6H PRN #16 tablet PRN Reason: Pain Referrals: PCP,None [Primary Care Provider] - Forms: ED Department Discharge <StockMonique - Last Filed: 11/03/18 08:39> ED HPI GENERAL MEDICAL PROBLEM - History of Present Illness INITIAL COMMENTS - FREE TEXT/NARRATIVE: Was evaluated by Dr. Espinoza and ultrasound was done which was negative except for positive Brown's sign. Dr. Espinoza felt patients' elevated WBC count was due to stress and pain. She does not recommend starting antibiotics at this time. I offered admission to the patient for pain control, however, he refused. I did explain to him that he would most likely need a HIDA scan but we are unable to do that at this hospital at this time he would need to be evaluated by surgery and have the referral to have it done at another facility. I did give him 1 dose of Levsin here and he fell asleep comfortably. Patient prefers to follow-up with Dr. Yoo and he will be discharged with tramadol, Levsin and Zofran. He understands he is to return here if pain worsens, fevers or inability to tolerate fluids occur. Departure - Departure Time of Disposition: 08:37 Condition: Good - Discharge Information *PRESCRIPTION DRUG MONITORING PROGRAM REVIEWED*: No *COPY OF PRESCRIPTION DRUG MONITORING REPORT IN PATIENT ROGER: No
[2018-11-03] MEDS ORDERED: LORazepam 2 MG/ML SDV IVPUSH ONE (05:11)
[2018-11-03] MEDS ORDERED: Ketorolac 30 MG/ML SDV IVPUSH ONE (05:26)
[2018-11-03 05:34] LABS: BLOOD UREA NITROGEN,BUN 18 mg/dL (7.0-18.0); CARBON DIOXIDE,CO2 26.2 mmol/L (21.0-32.0); CHLORIDE,CL 104 mmol/L (98-107); GLUCOSE RANDOM 118 mg/dL (74-106); LIPASE 53 U/L (73-393); POTASSIUM,K 4.1 mmol/L (3.5-5.1); SODIUM,NA 143 mmol/L (136-148)
[2018-11-03] MEDS ORDERED: Morphine 10 MG/ML Syringe IVPUSH ONE (05:46)
[2018-11-03] MEDS ORDERED: Hyoscyamine 0.125 MG Tab.SL SL ONE (08:10)
--- NOTE | 2018-11-03 08:25 | US ---
INDICATION: Right upper quadrant pain. TECHNIQUE: Conventional two-dimensional grayscale ultrasound of the right upper quadrant. COMPARISON: Ab/pelvis CT of 05/31/2017 and right upper quadrant ultrasound of 11/04/2017. FINDINGS: The gallbladder is normal in appearance, with no evidence of stones. No gallbladder wall thickening or pericholecystic fluid is demonstrated. The patient is reportedly tender over the gallbladder. No intrahepatic biliary ductal dilation is evident. The common bile duct is borderline enlarged at 7 mm. The distal common bile duct is obscured by gas. The liver is normal in size, shape and echogenicity. The pancreas is within normal limits. The right kidney is unremarkable. The visualized portion of the abdominal aorta and inferior vena cava are negative. IMPRESSION: Negative right upper quadrant ultrasound except for a positive Brown sign. Dictated by Joao Piper MD @ Nov 03 2018 8:16AM Signed by Dr. Joao Piper @ Nov 03 2018 8:23AM
== END 2018-11-03 08:45 | disposition home or self-care (01) ==
LOC: MW.ED 04:55
DX: R10.11 Right upper quadrant pain (principal); D72.829 Elevated white blood cell count, unspecified; E66.9 Obesity, unspecified; Z68.32 Body mass index [BMI] 32.0-32.9, adult; Z79.899 Other long term (current) drug therapy
CPT/HCPCS: 36415; 76705; 80053; 81001; 82150; 83605; 83690; 85025; 87086; 96374; 96375; 99284; A9270; J1170; J1885; J2060; J2270; J2405; J7040